=== PATIENT | female | born 1990 | race Caucasian/White ===

== ENCOUNTER 2016-09-17 20:53 | Emergency (ER) | payer SELFPAY ==
[~2016-09-17] VITALS: Ht 152.4 cm; Wt 57.3 kg
[~2016-09-17 20:53] MED LIST: ADVA250A INH; BACL10TA PO; ZOFR4TAB PO
[2016-09-17 21:16] VITALS: BP 104/73; PULSE 108; RESP 20; TEMP 98.8; O2SAT 98
[2016-09-17 22:45] VITALS: BP 103/71; PULSE 90; RESP 16; O2SAT 98
[2016-09-18 00:10] VITALS: BP 92/59; PULSE 99; RESP 16; O2SAT 98
[2016-09-18 00:43] VITALS: BP 92/59; PULSE 99; RESP 16; O2SAT 98
[2016-09-18] MEDS ORDERED: COLY4000S PO (20:27)
[2016-09-18] MEDS ORDERED: ZOFR4TAB PO (20:27)
[2017-01-26] MEDS ORDERED: MOBI7.5T PO (11:07)
== END 2016-09-18 01:00 | disposition left against medical advice (07) ==
LOC: PHED 20:53
DX: Z53.21 Procedure and treatment not carried out due to patient leaving prior to being seen by health care provider (principal)
CPT/HCPCS: 99281

== ENCOUNTER 2016-09-18 17:51 | Emergency (ER) | payer BC ==
[~2016-09-18] VITALS: Ht 152.4 cm; Wt 58.0 kg
[~2016-09-18 17:51] MED LIST changes: -BACL10TA PO; -ZOFR4TAB PO
[2016-09-18 17:53] VITALS: BP 123/70; PULSE 82; RESP 15; TEMP 98.3; O2SAT 96
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
[2016-09-18] MEDS ORDERED: ONDANSETRON HCL 4 MG/2 ML VIAL IV PUSH ONE (18:30)
[2016-09-18 19:25] LABS: AUTOMATED NEUTROPHIL # 6.5 TH/MM3 (1.8-7.7); BASOPHIL # 0.1 TH/MM3 (0-0.2); BASOPHIL % 0.6 % (0.0-2.0); EOSINOPHIL # 0.3 TH/MM3 (0-0.4); EOSINOPHIL % 2.6 % (0.0-4.0); HEMATOCRIT 41.9 % (35.0-46.0); HEMO FLAGS DIFF FINAL; LYMPH % 30.8 % (9.0-44.0); LYMPHOCYTE # 3.3 TH/MM3 (1.0-4.8); MEAN CELL VOLUME 91.9 FL (80.0-100.0); MEAN CORPUSCULAR HEMOGLOBIN 31.3 PG (27.0-34.0); MONO % 5.2 % (0.0-8.0); NEUT % 60.8 % (16.0-70.0); PLATELET COUNT 312 TH/MM3 (150-450); RED BLOOD COUNT 4.56 MIL/MM3 (4.00-5.30); RED CELL DISTRIBUTION WIDTH 12.9 % (11.6-17.2); WHITE BLOOD COUNT 10.6 TH/MM3 (4.0-11.0)
--- NOTE | 2016-09-18 19:33 | PD ---
Data Data Last Documented VS Vital Signs Date Time Temp Pulse Resp B/P Pulse Ox O2 Delivery O2 Flow Rate FiO2 09/18/16 18:08 17 09/18/16 17:53 98.3 82 123/70 96 Orders Complete Blood Count With Diff (09/18/16 18:26) Comprehensive Metabolic Panel (09/18/16 18:26) Lipase (09/18/16 18:26) Urinalysis - C+S If Indicated (09/18/16 18:26) Ct Abd/Pel W Iv Contrast(Rout) (09/18/16 18:26) Ed Urine Pregnancytest Poc (09/18/16 18:26) Ondansetron Inj (Zofran Inj) (09/18/16 18:30) Labs Laboratory Tests Test 09/18/16 19:16 White Blood Count 10.6 TH/MM3 Red Blood Count 4.56 MIL/MM3 Hemoglobin 14.3 GM/DL Hematocrit 41.9 % Mean Corpuscular Volume 91.9 FL Mean Corpuscular Hemoglobin 31.3 PG Mean Corpuscular Hemoglobin 34.0 % Concent Red Cell Distribution Width 12.9 % Platelet Count 312 TH/MM3 Mean Platelet Volume 8.8 FL Neutrophils (%) (Auto) 60.8 % Lymphocytes (%) (Auto) 30.8 % Monocytes (%) (Auto) 5.2 % Eosinophils (%) (Auto) 2.6 % Basophils (%) (Auto) 0.6 % Neutrophils # (Auto) 6.5 TH/MM3 Lymphocytes # (Auto) 3.3 TH/MM3 Monocytes # (Auto) 0.6 TH/MM3 Eosinophils # (Auto) 0.3 TH/MM3 Basophils # (Auto) 0.1 TH/MM3 CBC Comment DIFF FINAL Differential Comment [facility] Supervised Visit with KAMRAN: Yes Narrative Course The history, exam, and medical decision-making in the associated midlevel provider note were completed with my assistance. I reviewed and agree with the findings presented. I attest that I had a [id number] encounter with the patient on the same day, and personally performed and documented my assessment and findings in the medical record. *My assessment and Findings: This is a 26-year-old female who presents to the emergency department with vomiting, constipation and abdominal pain. She has no risk factors for bowel obstruction. She evidently had an x-ray at the urgent care where she was told that she has 2 sites of blockage and she should come to the emergency department for CT scan. Her paperwork notes that she has constipation and she should follow-up with a consultant technology as an outpatient. Given the patient's history it's reasonable to obtain a CT scan to rule out bowel obstruction. Patient will be dispositioned based on the findings. Aracelis Solano MD Sep 18, 2016 19:33
[2016-09-18 19:49] LABS: ANION GAP 7 MEQ/L (5-15); AST (GOT) 13 U/L (15-37); BICARBONATE 27.9 MEQ/L (21.0-32.0); BLOOD UREA NITROGEN 8 MG/DL (7-18); CHLORIDE 103 MEQ/L (98-107); GLOMERULAR FILTRATION RATE 102 ML/MIN (>89); POTASSIUM 4.1 MEQ/L (3.5-5.1); SODIUM (NA) 138 MEQ/L (136-145)
[2016-09-18 19:52] LABS: ALKALINE PHOSPHATASE 69 U/L (45-117); ALT (GPT) 25 U/L (10-53); TOTAL BILIRUBIN ADULT 0.3 MG/DL (0.2-1.0)
[2016-09-18] MEDS ORDERED: COLY4000S PO (20:27)
[2016-09-18] MEDS ORDERED: ZOFR4TAB PO (20:27)
[2016-09-18] MEDS ORDERED: IOHEXOL 350 MG/ML 10 ML VIAL (for RAD DIAG) IV ONE (20:34)
[2016-09-18 20:52] LABS: BACTERIA, URINE RARE /hpf; BLOOD, URINE NEG (NEG); COMMENT (UR) CULT NOT INDICATED; CULTURE IF INDICATED CULT NOT INDICATED; GLUCOSE,URINE NEG (NEG); KETONE, URINE NEG (NEG); NITRITE,URINE NEG (NEG); SQUAMOUS EPITHELIAL CELL URINE 2 /hpf (0-5); URINE COLOR COLORLESS (YELLW/STRAW)
--- NOTE | 2016-09-18 21:29 | RADRPT ---
EXAM DATE/TIME: 09/18/2016 20:29 [facility] COMPARISON: No previous studies available for comparison. INDICATIONS : Lower abdominal pain with constipation and nausea. IV CONTRAST: 95 cc Omnipaque 350 (iohexol) IV ORAL CONTRAST: No oral contrast ingested. RADIATION DOSE: 5.42 CTDIvol (mGy) MEDICAL HISTORY : Asthma. SURGICAL HISTORY : None. ENCOUNTER: Initial ACUITY: 1 day PAIN SCALE: 3/10 LOCATION: Bilateral lower quadrant TECHNIQUE: Volumetric scanning of the abdomen and pelvis was performed. Using automated exposure control and ad justment of the mA and/or kV according to patient size, radiation dose was kept as low as reasonably achievable to obtain optimal diagnostic quality images. FINDINGS: Bases are clear. Mild fatty liver. No significant abnormality in the spleen, adrenals, kidneys or santiago creas. No free fluid. No bowel obstruction. No adenopathy. There is a 2 cm right sided ovarian cyst. CONCLUSION: 1. No acute findings. 2 cm right ovarian cyst. No obstruction, free fluid or free air. Wally Conley MD on September 18, 2016 at 21:24 Board Certified Radiologist. This report was verified electronically.
[2016-09-18 21:53] VITALS: BP 128/77
[2017-01-26] MEDS ORDERED: MOBI7.5T PO (11:07)
== END 2016-09-18 21:53 | disposition home or self-care (01) ==
LOC: NEPE 17:51
DX: K59.00 Constipation, unspecified (principal); R10.30 Lower abdominal pain, unspecified; R11.0 Nausea; N83.201 Unspecified ovarian cyst, right side; J45.909 Unspecified asthma, uncomplicated
CPT/HCPCS: 74177; 80053; 81001; 83690; 84703; 85025; 96374; 99284; J2405; Q9967

== ENCOUNTER 2016-09-21 11:56 | Emergency (ER) | payer BC ==
[~2016-09-21] VITALS: Ht 152.4 cm; Wt 56.4 kg
[~2016-09-21 11:56] MED LIST changes: +COLY4000S PO; +ZOFR4TAB PO
[2016-09-21 12:14] VITALS: BP 123/74; PULSE 84; RESP 16; TEMP 98.2; O2SAT 98
--- NOTE | 2016-09-21 12:27 | PD ---
HPI Chief Complaint: Bite or Sting Time Seen by Provider: 12:25 Travel History International Travel<30 days: No Contact w/Intl Traveler<30days: No Traveled to known affect area: No History of Present Illness HPI Patient is a 26-year-old female presenting to emergency department for evaluation of dog bite to her left hand. Patient states the bite occurred just prior to arrival. Per the owners report the dog's up-to-date with immunizations. Patient's last tetanus vaccination was approximately one year ago. Patient states she is unable to move her thumb and first finger. She states the pain radiates up her forearm. She reports the pain as a 6 out of 10. PFSH Past Medical History ADHD: Yes Asthma: Yes Anxiety: Yes Diminished Hearing: No Headaches: Yes Respiratory: Yes (asthma) Immunizations Current: No Migraines: Yes ?: Not LMP: 09/03/16 Menopausal: No : 0 Para: 0 Miscarriage: 0 Past Surgical History Ear Surgery: Yes (EUSTATIAN TUBES A CHILD) Oral Surgery: Yes (WISDOM TEETH X 4) Tonsillectomy: Yes Tympanostomy Tube: Yes Other Surgery: Yes (ADENOIDECTOMY) Social History Alcohol Use: No Tobacco Use: No Substance Use: No Allergies-Medications (Allergen,Severity, Reaction): Coded Allergies: Cinnamon (Verified Allergy, Severe, HIVES, 09/21/16) Hydrocortisone (Verified Allergy, Severe, HIVES, 09/21/16) Mustard (Verified Allergy, Severe, HIVES, 09/21/16) Neomycin (Verified Allergy, Severe, HIVES, 09/21/16) Penicillin (Verified Allergy, Severe, HIVES, 09/21/16) Polysporin (Verified Allergy, Severe, HIVES, 09/21/16) Sulfa (Verified Allergy, Severe, hives, 09/21/16) Uncoded Allergies: BARBQUE SAUCE (Allergy, Severe, HIVES, 08/16/11) HONEY (Allergy, Severe, HIVES, 08/16/11) Reported Meds & Prescriptions Reported Meds & Active Scripts Active Golytely 236 gm (Polyethylene Glycol/Electrolytes) 4,000 Ml Soln 4,000 Ml PO ONCE Reported Advair Diskus Inh (Fluticasone-Salmeterol Inh) 250-50 Mcg/Blist Aer 1 Puff INH BID Rinse mouth after use. Review of Systems Except as stated in HPI: all other systems reviewed are Neg Musculoskeletal: Positive: Myalgias, Limited ROM, Edema, Pain Skin: Positive Change in Pigmentation, Positive Lesions Physical Exam Narrative GENERAL: Well-nourished, well-developed patient. SKIN: Warm and dry. Puncture wound noted to the interdigital space between the first and second fingers on the left hand as well as the dorsal aspect of the left hand. Ecchymosis noted to the left hand. Positive radial pulse, brisk less than 3 second capillary refill. HEAD: Normocephalic. EYES: No scleral icterus. No injection or drainage. NECK: Supple, trachea midline. No JVD or lymphadenopathy. CARDIOVASCULAR: Regular rate and rhythm without murmurs, gallops, or rubs. RESPIRATORY: Breath sounds equal bilaterally. No accessory muscle use. GASTROINTESTINAL: Abdomen soft, non-tender, nondistended. MUSCULOSKELETAL: No cyanosis, or edema. Decreased range of motion in fingers of left hand. BACK: Nontender without obvious deformity. No CVA tenderness. Data Data Last Documented VS Vital Signs Date Time Temp Pulse Resp B/P Pulse Ox O2 Delivery O2 Flow Rate FiO2 09/21/16 12:14 98.2 84 16 123/74 98 Orders Hand, Complete ([id number]) (09/21/16 ) Ibuprofen (Motrin) (09/21/16 12:30) MDM Medical Decision Making Medical Screen Exam Complete: Yes Emergency Medical Condition: Yes Interpretation(s) Vital Signs Date Time Temp Pulse Resp B/P Pulse Ox O2 Delivery O2 Flow Rate FiO2 09/21/16 12:14 98.2 84 16 123/74 98 Differential Diagnosis Puncture wound versus fracture versus tear versus other Narrative Course Patient is a 26-year-old female who presents emergency evaluation after a dog bite that occurred prior to arrival to her left hand. She states the dog is up- to-date with immunizations. Patient's tetanus vaccine is updated. Imaging of the left hand shows no acute fracture, no radiopaque foreign body noticed. Patient is neurovascularly intact. Patient was seen and evaluated by my attending physician. Patient will be discharged home on doxycycline and metronidazole due to an allergy to penicillin and sulfa drugs. She is encouraged to return to the emergency department for any new or worsening symptoms. She is further encouraged to follow-up with dog's owners to ensure that the animal has been adequately vaccinated. She verbalized understanding of these instructions. Patient stable for discharge. Diagnosis Primary Impression: Dog bite of hand Qualified Code: S61.452A - Dog bite of hand, left, initial encounter Referrals: Primary Care Physician Patient Instructions: Animal Bite (ED), General Instructions Additional Instructions: Return to emergency department immediately for any new or worsening symptoms Complete full course of antibiotics as prescribed Follow-up with dog's owners to ensure adequate vaccination, return to emergency department or [facility] Med/Other Pt SpecificInfo: Prescription(s) given Scripts Ibuprofen 800 Mg [id number] Mg PO Q6HR PRN (PAIN) #40 TAB Ref 0 Prov:Sania Pemberton 09/21/16 Metronidazole 500 Mg [id number] Mg PO TID 10 Days Ref 0 Prov:Sania Pemberton 09/21/16 Doxycycline (Monohydrate) (Doxycycline Monohydrate)100 Mg Tab1 Tab PO BID 10 Days Prov:Sania Pemberton 09/21/16 Disposition: 01 DISCHARGE HOME Condition: Stable Sania Pemberton Sep 21, 2016 12:27
[2016-09-21] MEDS ORDERED: IBUPROFEN 800 MG TAB PO ONE (12:30)
--- NOTE | 2016-09-21 13:25 | PD ---
Data Data Last Documented VS Vital Signs Date Time Temp Pulse Resp B/P Pulse Ox O2 Delivery O2 Flow Rate FiO2 09/21/16 12:14 98.2 84 16 123/74 98 Orders Hand, Complete ([id number]) (09/21/16 ) Ibuprofen (Motrin) (09/21/16 12:30) MDM Supervised Visit with KAMRAN: Yes Narrative Course Patient seen and examined by me in addition to sania QIU. Patient placed on third line doxycycline and flagyl secondary to allergies to penicillin and sulfa. Patient has unimpressive dog bite to thenar eminence. PMS intact, tendon's intact. Low risk for rabies. Prophylaxis not indicated. Stable for discharge. Scripts Ibuprofen 800 Mg Rug116 Mg PO Q6HR PRN (PAIN) #40 TAB Ref 0 Prov:Sania Pemberton 09/21/16 Metronidazole 500 Mg Thu391 Mg PO TID 10 Days Ref 0 Prov:Sania Pemberton 09/21/16 Doxycycline (Monohydrate) (Doxycycline Monohydrate)100 Mg Tab1 Tab PO BID 10 Days Prov:Sania Pemberton 09/21/16 Miguel A Jones MD Sep 21, 2016 13:25
--- NOTE | 2016-09-21 13:33 | RADHPO ---
EXAM DATE/TIME: 09/21/2016 12:54 [facility] COMPARISON: HAND LEFT COMPLETE ([id number]), September 11, 2006, 19:33. INDICATIONS : Left hand pain post dog bite. MEDICAL HISTORY : Asthma. SURGICAL HISTORY : Appendectomy. Tonsillectomy. ENCOUNTER: Initial ACUITY: 1 day PAIN SCORE: 10/10 LOCATION: Left hand FINDINGS: Three view examination of the left hand demonstrates no soft tissue swelling, dislocation, or fractur e. The carpal bones appear intact. The interphalangeal and metacarpophalangeal joints are intact. Bony mineralization is normal. CONCLUSION: Negative exam with no radiopaque foreign body or bony abnormality. Emiliano Pritchard MD on September 21, 2016 at 13:29 Board Certified Radiologist. This report was verified electronically.
[2016-09-21] MEDS ORDERED: IBUP800T23 PO (13:44)
[2016-09-21] MEDS ORDERED: METR500T10 PO (13:44)
[2016-09-21] MEDS ORDERED: DOXY1TAB13 PO (13:44)
[2017-01-26] MEDS ORDERED: MOBI7.5T PO (11:07)
== END 2016-09-21 13:53 | disposition home or self-care (01) ==
LOC: PHEFT 11:56
DX: S61.452A Open bite of left hand, initial encounter (principal); W54.0XXA Bitten by dog, initial encounter
CPT/HCPCS: 73130; 99283

== ENCOUNTER 2016-11-30 16:48 | Emergency (ER) | payer OTHER, BC ==
[~2016-11-30] VITALS: Ht 157.5 cm; Wt 57.2 kg
[~2016-11-30 16:48] MED LIST changes: +DOXY1TAB13 PO; +IBUP800T23 PO; +METR500T10 PO; -ZOFR4TAB PO
[2016-11-30 16:57] VITALS: BP 107/79; PULSE 81; RESP 16; TEMP 98.4; O2SAT 99
[2016-11-30] MEDS ORDERED: IBUP800T23 PO (17:59)
[2016-11-30] MEDS ORDERED: CYCL1TAB29 PO (17:59)
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
[2017-01-26] MEDS ORDERED: MOBI7.5T PO (11:07)
== END 2016-11-30 18:26 | disposition home or self-care (01) ==
LOC: PHED 16:48 → PHEFT 18:26
DX: M25.561 Pain in right knee (principal); J45.909 Unspecified asthma, uncomplicated; V43.52XA Car driver injured in collision with other type car in traffic accident, initial encounter; Y93.9 Activity, unspecified; Y92.410 Unspecified street and highway as the place of occurrence of the external cause; Y99.8 Other external cause status
CPT/HCPCS: 99283

== ENCOUNTER 2017-01-23 03:52 | Emergency (ER) | payer BC, OTHER ==
[~2017-01-23] VITALS: Ht 160 cm; Wt 60.0 kg
[~2017-01-23 03:52] MED LIST changes: +CYCL1TAB29 PO
[2017-01-23 03:58] VITALS: BP 144/78; PULSE 102; RESP 18; TEMP 98.1; O2SAT 99
[2017-01-23] MEDS ORDERED: meloxicam PO (04:20)
--- NOTE | 2017-01-23 04:38 | PD ---
HPI Chief Complaint: Psychiatric Symptoms Time Seen by Provider: 04:32 Travel History International Travel<30 days: No Contact w/Intl Traveler<30days: No Traveled to known affect area: No History of Present Illness HPI 26-year-old white female presents to emergency department under Fuentes act by PD. The patient had gotten into an argument with her significant other earlier this evening. There is allegations that she had made suicidal statements that she was going to shoot herself or shooting other people. This had stemmed after having a breakup with her significant other. The patient denies making the statements. She states that she had made vague suicidal statements but does not recall making suicidal statements involving a firearm. She states that she does have a handgun and should sit on a regular basis and has a concealed weapons permit. She denies any drugs. She does drink alcohol on occasion but denies any alcohol tonight. She is under the care of her physician for lower pelvic discomfort. She also has had problems with hair loss and is scheduled for a ultrasound of her pelvis. There was a question whether she may have had a positive test but reports a period on the of last month. She denies any toxic ingestions. No homicidal ideation. She denies any suicidal ideation. PFSH Past Medical History Narrative Medical Migraines, anxiety, ADHD ADHD: Yes Asthma: Yes Anxiety: Yes Diminished Hearing: No Headaches: Yes Respiratory: Yes (asthma) Immunizations Current: No Migraines: Yes Tetanus Vaccination: < 5 Years ?: Unknown LMP: 01/06/2017 Menopausal: No : 0 Para: 0 Miscarriage: 0 Past Surgical History Narrative Surgical Tonsils and adenoids, eye surgery, myringotomy tubes, right knee arthroscopy Ear Surgery: Yes (EUSTATIAN TUBES A CHILD) Oral Surgery: Yes (WISDOM TEETH X 4) Tonsillectomy: Yes Tympanostomy Tube: Yes Other Surgery: Yes (ADENOIDECTOMY) Social History Alcohol Use: Yes (socially) Tobacco Use: No Substance Use: No Allergies-Medications (Allergen,Severity, Reaction): Coded Allergies: Cinnamon (Verified Allergy, Severe, HIVES, 11/30/16) Hydrocortisone (Verified Allergy, Severe, HIVES, 11/30/16) Mustard (Verified Allergy, Severe, HIVES, 11/30/16) Neomycin (Verified Allergy, Severe, HIVES, 11/30/16) Penicillin (Verified Allergy, Severe, HIVES, 11/30/16) Polysporin (Verified Allergy, Severe, HIVES, 11/30/16) Sulfa (Verified Allergy, Severe, hives, 11/30/16) Uncoded Allergies: BARBQUE SAUCE (Allergy, Severe, HIVES, 08/16/11) HONEY (Allergy, Severe, HIVES, 08/16/11) Reported Meds & Prescriptions Reported Meds & Active Scripts Active Reported [meloxicam] 1 Tab PO DAILY Review of Systems Except as stated in HPI: all other systems reviewed are Neg Physical Exam Narrative GENERAL: Well-nourished, well-developed patient. SKIN: Warm and dry. HEAD: Normocephalic and atraumatic. EYES: No scleral icterus. No injection or drainage. ENT: No nasal drainage noted. Mucous membranes pink. Airway patent. NECK: Supple, trachea midline. Moves head freely without obvious discomfort. CARDIOVASCULAR: Regular rate and rhythm without murmurs, gallops, or rubs. RESPIRATORY: Breath sounds equal bilaterally. No accessory muscle use. GASTROINTESTINAL: Abdomen soft, non-tender, nondistended. EXTREMITIES: No cyanosis or edema. BACK: Nontender without obvious deformity. No CVA tenderness. NEURO: Patient is alert and oriented. no sensorimotor deficits. Nonfocal. Normal speech. PSYCH: No delusions. No auditory or visual hallucinations. Data Data Last Documented VS Vital Signs Date Time Temp Pulse Resp B/P Pulse Ox O2 Delivery O2 Flow Rate FiO2 01/23/17 03:58 98.1 102 18 144/78 99 Orders Complete Blood Count With Diff (01/23/17 04:19) Comprehensive Metabolic Panel (01/23/17 04:19) Ed Urine Pregnancytest Poc (01/23/17 04:19) Psych Screen (01/23/17 04:19) Drug Screen, Random Urine (01/23/17 04:19) Alcohol (Ethanol) (01/23/17 04:19) Labs Laboratory Tests Test 01/23/17 04:40 White Blood Count 9.9 TH/MM3 Red Blood Count 4.42 MIL/MM3 Hemoglobin 13.9 GM/DL Hematocrit 39.9 % Mean Corpuscular Volume 90.2 FL Mean Corpuscular Hemoglobin 31.4 PG Mean Corpuscular Hemoglobin 34.9 % Concent Red Cell Distribution Width 12.8 % Platelet Count 271 TH/MM3 Mean Platelet Volume 9.4 FL Neutrophils (%) (Auto) 81.5 % Lymphocytes (%) (Auto) 14.3 % Monocytes (%) (Auto) 3.7 % Eosinophils (%) (Auto) 0.1 % Basophils (%) (Auto) 0.4 % Neutrophils # (Auto) 8.1 TH/MM3 Lymphocytes # (Auto) 1.4 TH/MM3 Monocytes # (Auto) 0.4 TH/MM3 Eosinophils # (Auto) 0.0 TH/MM3 Basophils # (Auto) 0.0 TH/MM3 CBC Comment DIFF FINAL Differential Comment Sodium Level 139 MEQ/L Potassium Level 3.6 MEQ/L Chloride Level 104 MEQ/L Carbon Dioxide Level 25.9 MEQ/L Anion Gap 9 MEQ/L Blood Urea Nitrogen 11 MG/DL Creatinine 0.73 MG/DL Estimat Glomerular Filtration 97 ML/MIN Rate Random Glucose 100 MG/DL Calcium Level 9.0 MG/DL Total Bilirubin 0.4 MG/DL Aspartate Amino Transf 20 U/L (AST/SGOT) Alanine Aminotransferase 27 U/L (ALT/SGPT) Alkaline Phosphatase 62 U/L Total Protein 8.2 GM/DL Albumin 4.9 GM/DL Urine Opiates Screen NEG Urine Barbiturates Screen NEG Urine Amphetamines Screen NEG Urine Benzodiazepines Screen NEG Urine Cocaine Screen NEG Urine Cannabinoids Screen NEG Ethyl Alcohol Level LESS THAN 3 MG/DL MDM Medical Decision Making Medical Screen Exam Complete: Yes Emergency Medical Condition: Yes Medical Record Reviewed: Yes Interpretation(s) Laboratory Tests Test 01/23/17 04:40 White Blood Count 9.9 TH/MM3 Red Blood Count 4.42 MIL/MM3 Hemoglobin 13.9 GM/DL Hematocrit 39.9 % Mean Corpuscular Volume 90.2 FL Mean Corpuscular Hemoglobin 31.4 PG Mean Corpuscular Hemoglobin 34.9 % Concent Red Cell Distribution Width 12.8 % Platelet Count 271 TH/MM3 Mean Platelet Volume 9.4 FL Neutrophils (%) (Auto) 81.5 % Lymphocytes (%) (Auto) 14.3 % Monocytes (%) (Auto) 3.7 % Eosinophils (%) (Auto) 0.1 % Basophils (%) (Auto) 0.4 % Neutrophils # (Auto) 8.1 TH/MM3 Lymphocytes # (Auto) 1.4 TH/MM3 Monocytes # (Auto) 0.4 TH/MM3 Eosinophils # (Auto) 0.0 TH/MM3 Basophils # (Auto) 0.0 TH/MM3 CBC Comment DIFF FINAL Differential Comment Sodium Level 139 MEQ/L Potassium Level 3.6 MEQ/L Chloride Level 104 MEQ/L Carbon Dioxide Level 25.9 MEQ/L Anion Gap 9 MEQ/L Blood Urea Nitrogen 11 MG/DL Creatinine 0.73 MG/DL Estimat Glomerular Filtration 97 ML/MIN Rate Random Glucose 100 MG/DL Calcium Level 9.0 MG/DL Total Bilirubin 0.4 MG/DL Aspartate Amino Transf 20 U/L (AST/SGOT) Alanine Aminotransferase 27 U/L (ALT/SGPT) Alkaline Phosphatase 62 U/L Total Protein 8.2 GM/DL Albumin 4.9 GM/DL Urine Opiates Screen NEG Urine Barbiturates Screen NEG Urine Amphetamines Screen NEG Urine Benzodiazepines Screen NEG Urine Cocaine Screen NEG Urine Cannabinoids Screen NEG Ethyl Alcohol Level LESS THAN 3 MG/DL Differential Diagnosis MDM: High Differential diagnoses: Schizophrenia, schizoaffective disorder, bipolar, anxiety, depression, adjustment reaction, mood disorder NOS, ODD, depressive disorder NOS, dementia, dementia with agitation, psychosis NOS, substance induced mood disorder, intermittent explosive disorder, Asperger syndrome, infection,electrolyte abnormality, malingering. Narrative Course Mental health screening discussed with the patient. Psychiatric screen ordered. The patient's been medically cleared. This is adjustment reaction, medical clearance psychological admission Diagnosis Primary Impression: Adjustment reaction Qualified Code: F43.25 - Adjustment disorder with mixed disturbance of emotions and conduct Additional Impression: Medical clearance for psychiatric admission Condition: Stable Wally Randle Jan 23, 2017 04:37
[2017-01-23 04:59] LABS: AUTOMATED NEUTROPHIL # 8.1 TH/MM3 (1.8-7.7); BASOPHIL % 0.4 % (0.0-2.0); EOSINOPHIL % 0.1 % (0.0-4.0); HEMATOCRIT 39.9 % (35.0-46.0); HEMO FLAGS DIFF FINAL; LYMPH % 14.3 % (9.0-44.0); LYMPHOCYTE # 1.4 TH/MM3 (1.0-4.8); MEAN CELL VOLUME 90.2 FL (80.0-100.0); MEAN CORPUSCULAR HEMOGLOBIN 31.4 PG (27.0-34.0); MEAN CORPUSCULAR HGB CONC 34.9 % (32.0-36.0); MONO % 3.7 % (0.0-8.0); NEUT % 81.5 % (16.0-70.0); PLATELET COUNT 271 TH/MM3 (150-450); RED BLOOD COUNT 4.42 MIL/MM3 (4.00-5.30); RED CELL DISTRIBUTION WIDTH 12.8 % (11.6-17.2); WHITE BLOOD COUNT 9.9 TH/MM3 (4.0-11.0)
[2017-01-23 05:26] LABS: ALT (GPT) 27 U/L (10-53); ANION GAP 9 MEQ/L (5-15); AST (GOT) 20 U/L (15-37); BICARBONATE 25.9 MEQ/L (21.0-32.0); BLOOD UREA NITROGEN 11 MG/DL (7-18); CHLORIDE 104 MEQ/L (98-107); GLOMERULAR FILTRATION RATE 97 ML/MIN (>89); POTASSIUM 3.6 MEQ/L (3.5-5.1); SODIUM (NA) 139 MEQ/L (136-145)
[2017-01-23 05:28] LABS: ALKALINE PHOSPHATASE 62 U/L (45-117); TOTAL BILIRUBIN ADULT 0.4 MG/DL (0.2-1.0)
[2017-01-23 05:46] LABS: AMPHETAMINE, URINE NEG (NEG); BARBITURATES, URINE NEG (NEG); COCAINE, URINE NEG (NEG)
[2017-01-23 07:03] VITALS: BP 128/75; PULSE 85; RESP 17; O2SAT 99
[2017-01-23 11:15] VITALS: BP 130/72; PULSE 82; RESP 18; O2SAT 98
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
[2017-01-26] MEDS ORDERED: MOBI7.5T PO (11:07)
== END 2017-01-23 12:28 | disposition home or self-care (01) ==
LOC: NEPD 03:52
DX: F43.20 Adjustment disorder, unspecified (principal); F90.9 Attention-deficit hyperactivity disorder, unspecified type; J45.909 Unspecified asthma, uncomplicated; F41.9 Anxiety disorder, unspecified
CPT/HCPCS: 80053; 80307; 84703; 85025; 99284

== ENCOUNTER 2017-01-29 23:26 | Emergency (ER) | payer BC, OTHER ==
[~2017-01-29] VITALS: Ht 160 cm; Wt 55.0 kg
[~2017-01-29 23:26] MED LIST changes: -ADVA250A INH; -COLY4000S PO; -CYCL1TAB29 PO; -DOXY1TAB13 PO; -IBUP800T23 PO; -METR500T10 PO; +MOBI7.5T PO
[2017-01-29 23:30] VITALS: BP 138/81; PULSE 92; RESP 18; TEMP 98.5; O2SAT 99
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
[2017-01-30 02:00] VITALS: BP 122/76; PULSE 87; RESP 16; O2SAT 99
== END 2017-01-30 05:12 | disposition left against medical advice (07) ==
LOC: PHED 23:26
DX: T76.21XA Adult sexual abuse, suspected, initial encounter (principal); Z86.59 Personal history of other mental and behavioral disorders; Z87.09 Personal history of other diseases of the respiratory system; Z86.69 Personal history of other diseases of the nervous system and sense organs
CPT/HCPCS: 99281

== ENCOUNTER 2017-04-28 17:11 | Emergency (ER) | payer BC ==
[2017-04-28 17:21] VITALS: BP 111/60; PULSE 90; RESP 20; TEMP 98.4; O2SAT 97
[2017-04-28 18:51] LABS: BLOOD, URINE NEG (NEG); GLUCOSE,URINE NEG (NEG); KETONE, URINE NEG (NEG); NITRITE,URINE NEG (NEG)
[2017-04-28 19:00] LABS: URINE COLOR YELLOW (YELLW/STRAW)
[2017-04-28 19:01] LABS: COMMENT (UR) CULT NOT INDICATED; CULTURE IF INDICATED CULT NOT INDICATED; RBC, URINE 0-3 /hpf (0-3); WBC, URINE 0-2 /hpf (0-5)
--- NOTE | 2017-04-28 19:49 | PD ---
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 Patient has history of ovarian cyst. Patient is under care of Dr. Figueroa had an ultrasound that showed a 4 mm ovarian cyst on the right within the past 2 months. Patient's last menstrual period was approximate 2 weeks ago. Patient does note that she has painful menses as well as painful midcycle symptoms. Patient does not report any abnormal vaginal discharge or abnormal vaginal bleeding. Patient has had no fever no chills no nausea no vomiting or change in bowel movements. Patient's had no dysuria frequency urgency hematuria or flank pain. Patient rates her pain 8/10 intensity. Symptoms are present for 3 days. Patient is unable to identify exacerbating or alleviating factors. Patient states she came because her boyfriend insisted that she found him to the emergency room. Patient states she's had 2 doses of ibuprofen 800 mg without symptom relief. Patient has had no abdominal or pelvic surgery in the past. Patient has had tonsillectomy adenoidectomy and dental extraction. 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 [facility] Past Medical History Narrative Medical Asthma anxiety tonsillectomy tympanostomy adenoidectomy dental extraction ADHD: Yes Asthma: Yes Anxiety: Yes Diabetes: No (HYPOGLYCEMIA) Diminished Hearing: No Headaches: Yes Respiratory: Yes (asthma) Immunizations Current: No Migraines: Yes Tetanus Vaccination: < 5 Years Influenza Vaccination: No ?: Unknown LMP: 2 WEEKS AGO Menopausal: No : 0 Para: 0 Miscarriage: 0 Past Surgical History Ear Surgery: Yes (EUSTATIAN TUBES A CHILD) Oral Surgery: Yes (WISDOM TEETH X 4) Tonsillectomy: Yes Tympanostomy Tube: Yes Other Surgery: Yes (ADENOIDECTOMY) Social History Alcohol Use: Yes (socially) Tobacco Use: No Substance Use: No Allergies-Medications (Allergen,Severity, Reaction): Coded Allergies: Sulfa (Sulfonamide Antibiotics) (Unverified Allergy, Severe, hives, ) bacitracin (Unverified Allergy, Severe, HIVES, 04/28/17) cinnamon (Unverified Allergy, Severe, HIVES, 04/28/17) hydrocortisone (Unverified Allergy, Severe, HIVES, 04/28/17) mustard (Unverified Allergy, Severe, HIVES, 04/28/17) neomycin (Unverified Allergy, Severe, HIVES, 04/28/17) penicillin G (Unverified Allergy, Severe, HIVES, 04/28/17) polymyxin B (Unverified Allergy, Severe, HIVES, 04/28/17) Uncoded Allergies: BARBQUE SAUCE (Allergy, Severe, HIVES, 08/16/11) HONEY (Allergy, Severe, HIVES, 08/16/11) Reported Meds & Prescriptions Reported Meds & Active Scripts Active Metrogel Vaginal Gel (Metronidazole Vaginal Gel) 0.75 % Gel 1 Appl VAGINAL HS Anaprox DS (Naproxen Sodium) 550 Mg Tab 550 Mg PO Q12HR PRN Review of Systems Except as stated in HPI: all other systems reviewed are Neg General / Constitutional: No: Fever, Chills HENT: No: Congestion Cardiovascular: No: Chest Pain or Discomfort Respiratory: No: Shortness of Breath Gastrointestinal: Positive: Abdominal Pain (suprapubic mild right lower quadrant/pelvic pain), No: Nausea, Vomiting, Diarrhea, Hematemesis, Hematochezia , Constipation, Loss of Appetite Genitourinary: No: Urgency, Frequency, Dysuria, Hematuria, Flank Pain, Discharge, Vaginal Bleeding Musculoskeletal: No: Myalgias, Arthralgias Skin: No Rash Neurologic: No: Weakness Psychiatric: No: Anxiety Endocrine: No: Heat Intolerance Hematologic/Lymphatic: No: Easy Bruising Physical Exam Narrative GENERAL: Well-developed well-nourished female in no acute distress no respiratory distress; SKIN: Warm and dry. HEAD: Normocephalic. EYES: No scleral icterus. No injection or drainage. NECK: Supple, trachea midline. No JVD or lymphadenopathy. CARDIOVASCULAR: Regular rate and rhythm without murmurs, gallops, or rubs. RESPIRATORY: Breath sounds equal bilaterally. No accessory muscle use. GASTROINTESTINAL: Abdomen soft, mild suprapubic and right-sided lower right lower quadrant pain with deep palpation no guarding or rebound, nondistended. Pelvic exam: Normal external exam no redness induration or ulcerations; speculum exam white mucus no blood no clots no tissue cervical os is closed; bimanual exam no cervical motion tenderness mild right-sided adnexal tenderness without palpable mass left adnexa nontender no palpable mass. Rectal exam: Deferred MUSCULOSKELETAL: No cyanosis, or edema. BACK: Nontender without obvious deformity. No CVA tenderness. Data Data Last Documented VS Vital Signs Date Time Temp Pulse Resp B/P (MAP) Pulse Ox O2 Delivery O2 Flow Rate FiO2 04/28/17 21:11 70 15 110/65 (80) 98 Room Air 04/28/17 17:21 98.4 Orders Orders Urinalysis - C+S If Indicated (04/28/17 18:36) Ed Urine Pregnancytest Poc (04/28/17 18:36) Complete Blood Count With Diff (04/28/17 20:02) Basic Metabolic Panel (Bmp) (04/28/17 20:02) Gc And Chlamydia Pcr (04/28/17 20:02) Wet Prep Profile (04/28/17 20:02) Iv Access Insert/Monitor (04/28/17 20:02) Sodium Chlorid 0.9% 500 Ml Inj (Ns 500 M (04/28/17 20:15) Ketorolac Inj (Toradol Inj) (04/28/17 20:15) Ct Abd/Pel W/O Iv Contrast (04/28/17 ) Labs Laboratory Tests Test 04/28/17 18:40 04/28/17 20:39 Urine Color YELLOW Urine Turbidity CLEAR Urine pH 6.0 Urine Specific [place] 1.015 Urine Protein NEG mg/dL Urine Glucose (UA) NEG mg/dL Urine Ketones NEG mg/dL Urine Occult Blood NEG Urine Nitrite NEG Urine Bilirubin NEG Urine Leukocyte Esterase NEG Urine RBC 0-3 /hpf Urine WBC 0-2 /hpf Urine Squamous Epithelial Cells 6-8 /hpf Microscopic Urinalysis Comment CULT NOT INDICATED White Blood Count 9.4 TH/MM3 Red Blood Count 4.18 MIL/MM3 Hemoglobin 13.1 GM/DL Hematocrit 38.1 % Mean Corpuscular Volume 91.1 FL Mean Corpuscular Hemoglobin 31.4 PG Mean Corpuscular Hemoglobin Concent 34.4 % Red Cell Distribution Width 13.0 % Platelet Count 278 TH/MM3 Mean Platelet Volume 8.8 FL Neutrophils (%) (Auto) 59.7 % Lymphocytes (%) (Auto) 30.2 % Monocytes (%) (Auto) 5.1 % Eosinophils (%) (Auto) 4.3 % Basophils (%) (Auto) 0.7 % Neutrophils # (Auto) 5.5 TH/MM3 Lymphocytes # (Auto) 2.9 TH/MM3 Monocytes # (Auto) 0.5 TH/MM3 Eosinophils # (Auto) 0.4 TH/MM3 Basophils # (Auto) 0.1 TH/MM3 CBC Comment DIFF FINAL Differential Comment Clue Cells (Wet Prep) PRESENT Vaginal Trichomonas (Wet Prep) NONE SEEN Vaginal Yeast (Wet Prep) NONE SEEN Blood Urea Nitrogen 14 MG/DL Creatinine 0.60 MG/DL Random Glucose 94 MG/DL Calcium Level 8.1 MG/DL Sodium Level 140 MEQ/L Potassium Level 3.9 MEQ/L Chloride Level 108 MEQ/L Carbon Dioxide Level 25.8 MEQ/L Anion Gap 6 MEQ/L Estimat Glomerular Filtration Rate 121 ML/MIN MDM Medical Decision Making Medical Screen Exam Complete: Yes Emergency Medical Condition: Yes Medical Record Reviewed: Yes Interpretation(s) POC hcg: negativwe UA: grossly wnl Last Impressions Abdomen/Pelvis CT 04/28/17 0000 Signed Impressions: Service Date/Time: April 20:54 - CONCLUSION: Small free fluid in the pelvic cul-de-sac, nonspecific but essentially a physiologic amount for a patient this age. No acute abnormality demonstrated. No inflammatory changes are demonstrated. No stones or obstructive uropathy. Husam Hawkins MD CBC & BMP Diagram 04/28/17 20:39 Calcium Level 8.1 L Vital Signs Date Time Temp Pulse Resp B/P (MAP) Pulse Ox O2 Delivery O2 Flow Rate FiO2 04/28/17 21:11 70 15 110/65 (80) 98 Room Air 04/28/17 17:21 98.4 90 20 111/60 (77) 97 Differential Diagnosis UTI ectopic mittelschmerz ruptured ovarian cyst also consider ovarian torsion Narrative Course Patient with history of ovarian cyst reportedly 2 months ago with 4 cm right ovarian cyst with history of painful menses and midcycle pain. No fever no chills no nausea no vomiting no dysuria or flank pain no abnormal vaginal discharge or vaginal bleeding and denies last period was 2 weeks ago and reportedly normal for her although she has reportedly abnormal cervical. Urinalysis found to be in normal range; [id number] urine test is negative Saline lock CBC basic metabolic specimens collected along with wet prep and GC chlamydia PCR; patient administered bolus of normal saline 500 cc administered Toradol 30 mg IV and kidney stone protocol CT noncontrast ordered. At 9:40 PM patient informed that CAT scan is consistent with most likely small ruptured physiologic cyst is a small amount of physiologic free fluid in the pelvis. Patient is otherwise stable for outpatient management and follow-up with her nut grinder. Patient also noted to have some clue cells given MetroGel-Vaginal and will be followed up again with her nut grinder return to the emergency department as needed. 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: Front Office Manager call for appointment Patient Instructions: General Instructions Additional Instructions: Increase fluid hydration Follow-up with your nut grinder Return to the emergency department for any concerns or change in condition Take medications as prescribed May take acetaminophen/pel as needed for fever 100.4F or greater Med/Other Pt SpecificInfo: Prescription(s) given Scripts Metronidazole Vaginal Gel (Metrogel Vaginal Gel) 0.75 % Gel 1 APPL VAGINAL HS for Infection, #1 TUBE 0 Refills Prov: Marybeth Gunderson MD 04/28/17 Naproxen Sodium DS (Anaprox DS) 550 Mg Tab 550 MG PO Q12HR Y for PAIN GREATER THAN 5, #12 TAB 0 Refills Prov: Marybeth Gunderson MD 04/28/17 Disposition: 01 DISCHARGE HOME Condition: Stable Marybeth Gunderson MD Apr 28, 2017 19:48
[2017-04-28] MEDS ORDERED: KETOROLAC TROMETHAMINE 30 MG/ML (IVP) VIAL IV PUSH ONE (20:15)
[2017-04-28] MEDS ORDERED: SODIUM CHLORID 0.9% 500 ML INJ 500 ML IV ONE (20:15)
[2017-04-28 20:45] LABS: AUTOMATED NEUTROPHIL # 5.5 TH/MM3 (1.8-7.7); BASOPHIL # 0.1 TH/MM3 (0-0.2); BASOPHIL % 0.7 % (0.0-2.0); EOSINOPHIL # 0.4 TH/MM3 (0-0.4); EOSINOPHIL % 4.3 % (0.0-4.0); HEMATOCRIT 38.1 % (35.0-46.0); HEMO FLAGS DIFF FINAL; LYMPH % 30.2 % (9.0-44.0); LYMPHOCYTE # 2.9 TH/MM3 (1.0-4.8); MEAN CELL VOLUME 91.1 FL (80.0-100.0); MEAN CORPUSCULAR HEMOGLOBIN 31.4 PG (27.0-34.0); MEAN CORPUSCULAR HGB CONC 34.4 % (32.0-36.0); MONO % 5.1 % (0.0-8.0); NEUT % 59.7 % (16.0-70.0); PLATELET COUNT 278 TH/MM3 (150-450); RED BLOOD COUNT 4.18 MIL/MM3 (4.00-5.30); WHITE BLOOD COUNT 9.4 TH/MM3 (4.0-11.0)
[2017-04-28 20:53] LABS: POTASSIUM 3.9 MEQ/L (3.5-5.1)
[2017-04-28 20:56] LABS: BICARBONATE 25.8 MEQ/L (21.0-32.0)
[2017-04-28 21:11] VITALS: BP 110/65; PULSE 70; RESP 15; O2SAT 98
--- NOTE | 2017-04-28 21:29 | RADRPT ---
EXAM DATE/TIME: 04/28/2017 20:54 [facility] COMPARISON: No previous studies available for comparison. INDICATIONS : Pain middle abdomen, below umbillicus per patient. ORAL CONTRAST: No oral contrast ingested. RADIATION DOSE: 7.91 CTDIvol (mGy) MEDICAL HISTORY : None SURGICAL HISTORY : Tonsillectomy. ENCOUNTER: Initial ACUITY: 1 day PAIN SCALE: 0/10 LOCATION: Bilateral medial TECHNIQUE: Volumetric scanning of the abdomen and pelvis was performed. Using automated exposure control and ad justment of the mA and/or kV according to patient size, radiation dose was kept as low as reasonably achievable to obtain optimal diagnostic quality images. DICOM format image data is available electro nically for review and comparison. FINDINGS: LOWER LUNGS: The visualized lower lungs are clear. LIVER: Homogeneous density without lesion. There is no dilation of the biliary tree. No calcified gallston es. SPLEEN: Normal size without lesion. PANCREAS: Within normal limits. KIDNEYS: Normal in size and shape. There is no mass, stone, or hydronephrosis. ADRENAL GLANDS: Within normal limits. VASCULAR: There is no aortic aneurysm. BOWEL/MESENTERY: The stomach, small bowel, and colon demonstrate no acute abnormality. No free air. Appendix within no rmal limits. ABDOMINAL WALL: Within normal limits. RETROPERITONEUM: There is no lymphadenopathy. BLADDER: No wall thickening or mass. REPRODUCTIVE: Uterus and ovaries appear normal. Small free fluid in the pelvic cul-de-sac. INGUINAL: There is no lymphadenopathy or hernia. MUSCULOSKELETAL: No acute bony abnormality demonstrated. CONCLUSION: Small free fluid in the pelvic cul-de-sac, nonspecific but essentially a physiologic amount for a pat ient this age. No acute abnormality demonstrated. No inflammatory changes are demonstrated. No stones or obstructive uropathy. Husam Hawkins MD on April 28, 2017 at 21:24 Board Certified Radiologist. This report was verified electronically.
[2017-04-28] MEDS ORDERED: NAPR550 PO (21:39)
[2017-04-28] MEDS ORDERED: METR0.7528 VAGINAL (21:39)
[2017-04-29 05:35] LABS: CHLAMYDIA PCR NOT DETECTED (NOT DETECT); NEISSERIA PCR NOT DETECTED (NOT DETECT)
== END 2017-04-28 22:29 | disposition home or self-care (01) ==
LOC: PHED 17:11
DX: N94.0 Mittelschmerz (principal); N76.0 Acute vaginitis; N83.201 Unspecified ovarian cyst, right side
CPT/HCPCS: 74176; 80048; 81001; 84703; 85025; 87210; 87491; 87591; 96361; 96374; 99285; J1885; J7040

== ENCOUNTER 2017-05-20 22:36 | Emergency (ER) | payer BC ==
[~2017-05-20] VITALS: Ht 160 cm; Wt 57.9 kg
[~2017-05-20 22:36] MED LIST changes: +METR0.7528 VAGINAL; -MOBI7.5T PO; +NAPR550 PO
[2017-05-20 22:39] VITALS: BP 124/76; PULSE 77; RESP 18; TEMP 98.2; O2SAT 97
[2017-05-20] MEDS ORDERED: METR500T10 PO (23:08)
[2017-05-20 23:10] VITALS: BP 104/68; PULSE 90; RESP 16; O2SAT 99
[2017-05-20] MEDS ORDERED: JUNE1.5T PO (23:13)
--- NOTE | 2017-05-20 23:20 | PD ---
HPI Chief Complaint: Abdominal Pain Time Seen by Provider: 23:04 Travel History International Travel<30 days: No Contact w/Intl Traveler<30days: No Traveled to known affect area: No History of Present Illness HPI The patient is a 27-year-old female that came in tonight mainly because of her sharp, positional, pleuritic chest pains for 4 days. She also has lower abdominal pain but this is being worked up by health and wellness sales consultant and this is been intermittent for 3 months. She does have a primary care physician who has been following this as well. The patient denies any fever, cough, hemoptysis, syncopal or near syncopal spells, tachycardia and has never had a history of pulmonary embolus. She states there is no possibility of , she takes control pills correctly. PFSH Past Medical History ADHD: Yes Asthma: Yes Anxiety: Yes Diabetes: No (HYPOGLYCEMIA) Diminished Hearing: No Headaches: Yes Respiratory: Yes Immunizations Current: No Migraines: Yes ?: Not LMP: 10 DAYS AGO Menopausal: No : 0 Para: 0 Miscarriage: 0 Past Surgical History Ear Surgery: Yes (EUSTATIAN TUBES A CHILD) Oral Surgery: Yes (WISDOM TEETH X 4) Tonsillectomy: Yes Tympanostomy Tube: Yes Other Surgery: Yes (ADENOIDECTOMY) Social History Alcohol Use: Yes (socially) Tobacco Use: No Substance Use: No Allergies-Medications (Allergen,Severity, Reaction): Coded Allergies: Sulfa (Sulfonamide Antibiotics) (Unverified Allergy, Severe, hives, ) bacitracin (Unverified Allergy, Severe, HIVES, 05/20/17) cinnamon (Unverified Allergy, Severe, HIVES, 05/20/17) hydrocortisone (Unverified Allergy, Severe, HIVES, 05/20/17) mustard (Unverified Allergy, Severe, HIVES, 05/20/17) neomycin (Unverified Allergy, Severe, HIVES, 05/20/17) penicillin G (Unverified Allergy, Severe, HIVES, 05/20/17) polymyxin B (Unverified Allergy, Severe, HIVES, 05/20/17) Uncoded Allergies: BARBQUE SAUCE (Allergy, Severe, HIVES, 08/16/11) HONEY (Allergy, Severe, HIVES, 08/16/11) Reported Meds & Prescriptions Reported Meds & Active Scripts Active Reported .01/11 (Norethindrone-Ethinyl Estradiol-Fe) 1.5-30 Mg-Mcg Tab 1 Tab PO DAILY Metronidazole 500 Mg Tab 500 Mg PO BID Review of Systems Except as stated in HPI: all other systems reviewed are Neg Physical Exam Narrative GENERAL: The patient is alert, oriented 3 in slight apparent distress with her left chest pain. Her vital signs are normal. She is in no respiratory distress. SKIN: Focused skin assessment warm/dry. HEAD: Atraumatic. Normocephalic. EYES: Pupils equal and round. No scleral icterus. No injection or drainage. ENT: No nasal bleeding or discharge. Mucous membranes pink and moist. NECK: Trachea midline. No JVD. CARDIOVASCULAR: Regular rate and rhythm. No murmur appreciated. RESPIRATORY: No accessory muscle use. Clear to auscultation. Breath sounds equal bilaterally. I can completely reproduce the patient's chest pain by pressing on the left anterior chest wall underneath the left breast. GASTROINTESTINAL: Abdomen soft, non-tender, nondistended. Hepatic and splenic margins not palpable. MUSCULOSKELETAL: No obvious deformities. No clubbing. No cyanosis. No edema. NEUROLOGICAL: Awake and alert. No obvious cranial nerve deficits. Motor grossly within normal limits. Normal speech. PSYCHIATRIC: Appropriate mood and affect; insight and judgment normal. Data Data Last Documented VS Vital Signs Date Time Temp Pulse Resp B/P (MAP) Pulse Ox O2 Delivery O2 Flow Rate FiO2 05/21/17 00:10 72 16 101/58 (72) 98 Room Air 05/20/17 22:39 98.2 Orders Orders Complete Blood Count With Diff (05/20/17 23:20) Basic Metabolic Panel (Bmp) (05/20/17 23:20) Troponin I (05/20/17 23:20) D-Dimer (05/20/17 23:20) Chest, Pa & Lat (05/20/17 23:20) Urinalysis - C+S If Indicated (05/20/17 23:20) Ed Urine Pregnancytest Poc (05/20/17 23:20) Ketorolac Inj (Toradol Inj) (05/20/17 23:30) Urine Culture (05/20/17 23:50) Ct Pulmonary Angiogram (05/21/17 00:48) Iohexol 350 Inj (Omnipaque 350 Inj) (05/21/17 01:15) Labs Laboratory Tests Test 05/20/17 23:50 White Blood Count 11.4 TH/MM3 Red Blood Count 4.60 MIL/MM3 Hemoglobin 13.7 GM/DL Hematocrit 42.1 % Mean Corpuscular Volume 91.6 FL Mean Corpuscular Hemoglobin 29.9 PG Mean Corpuscular Hemoglobin Concent 32.6 % Red Cell Distribution Width 13.3 % Platelet Count 338 TH/MM3 Mean Platelet Volume 9.2 FL Neutrophils (%) (Auto) 73.5 % Lymphocytes (%) (Auto) 19.9 % Monocytes (%) (Auto) 4.5 % Eosinophils (%) (Auto) 1.5 % Basophils (%) (Auto) 0.6 % Neutrophils # (Auto) 8.3 TH/MM3 Lymphocytes # (Auto) 2.3 TH/MM3 Monocytes # (Auto) 0.5 TH/MM3 Eosinophils # (Auto) 0.2 TH/MM3 Basophils # (Auto) 0.1 TH/MM3 CBC Comment DIFF FINAL Differential Comment D-Dimer Quantitative (PE/DVT) 1.06 MG/L FEU Urine Color YELLOW Urine Turbidity SLIGHT Urine pH 5.5 Urine Specific [place] 1.025 Urine Protein NEG mg/dL Urine Glucose (UA) NEG mg/dL Urine Ketones TRACE mg/dL Urine Occult Blood NEG Urine Nitrite NEG Urine Bilirubin NEG Urine Leukocyte Esterase NEG Urine RBC 0-2 /hpf Urine WBC 0-2 /hpf Urine Squamous Epithelial Cells > 8 /hpf Urine Bacteria MANY /hpf Microscopic Urinalysis Comment CULTURE INDICATED Blood Urea Nitrogen 15 MG/DL Creatinine 0.69 MG/DL Random Glucose 74 MG/DL Calcium Level 8.8 MG/DL Sodium Level 136 MEQ/L Potassium Level 3.6 MEQ/L Chloride Level 102 MEQ/L Carbon Dioxide Level 27.8 MEQ/L Anion Gap 6 MEQ/L Estimat Glomerular Filtration Rate 103 ML/MIN Troponin I LESS THAN 0.02 NG/ML MDM Medical Decision Making Medical Screen Exam Complete: Yes Emergency Medical Condition: Yes Medical Record Reviewed: Yes Interpretation(s) The rrniu-aw-ypen urine test was negative. The CBC is normal except for white count of 11,400. The basic metabolic profile is normal. The troponin I is normal. The d-dimer is 1.06. The urine shows trace ketones, many bacteria and culture is indicated. The CT angiogram is negative, the patient does not have any pulmonary embolus. Differential Diagnosis Chest wall pain, pleuritic pain, pneumonia, pulmonary embolus, pneumothorax Narrative Course The patient does have urinary symptoms of urgency and some leakage of her urine which she never had before. She will be treated as a urinary tract infection. Because the d-dimer was elevated, we will do a CTA. Diagnosis Primary Impression: Cystitis Ruled Out: Pulmonary embolus Additional Instructions: The urinary antibiotic is taken one twice daily for 10 days. Also, drink increased amounts of liquids. It is important to establish a good urinary flow across your kidneys with a urine infection. Med/Other Pt SpecificInfo: Prescription(s) given Scripts Nitrofurantoin Monohydrate Macrocrystals (Macrobid) 100 Mg Cap 100 MG PO BID for Infection for 10 Days, #20 CAP 0 Refills Prov: Trey Gill MD 05/21/17 Disposition: 01 DISCHARGE HOME Condition: Stable Trey Gill MD May 20, 2017 23:20
[2017-05-20] MEDS ORDERED: KETOROLAC TROMETHAMINE 60 MG/2 ML (IM) VIAL IVP ONE (23:30)
--- NOTE | 2017-05-20 23:51 | RADRPT ---
EXAM DATE/TIME: 05/20/2017 23:38 [facility] COMPARISON: No previous studies available for comparison. INDICATIONS : Chest pain. MEDICAL HISTORY : Asthma SURGICAL HISTORY : None. ENCOUNTER: Initial ACUITY: 3 months PAIN SCORE: 6/10 LOCATION: Bilateral chest FINDINGS: PA and lateral views of the chest demonstrate the lungs to be symmetrically aerated without evidence of mass, infiltrate or effusion. The cardiomediastinal contours are unremarkable. Osseous structure s are intact. CONCLUSION: Normal examination. Silver Bhatti Jr., MD on May 20, 2017 at 23:49 Board Certified Radiologist. This report was verified electronically.
[2017-05-21] LABS: AUTOMATED NEUTROPHIL # 8.3 TH/MM3 (1.8-7.7); BASOPHIL # 0.1 TH/MM3 (0-0.2); BASOPHIL % 0.6 % (0.0-2.0); EOSINOPHIL # 0.2 TH/MM3 (0-0.4); EOSINOPHIL % 1.5 % (0.0-4.0); HEMATOCRIT 42.1 % (35.0-46.0); HEMO FLAGS DIFF FINAL; LYMPH % 19.9 % (9.0-44.0); LYMPHOCYTE # 2.3 TH/MM3 (1.0-4.8); MEAN CELL VOLUME 91.6 FL (80.0-100.0); MEAN CORPUSCULAR HEMOGLOBIN 29.9 PG (27.0-34.0); MEAN CORPUSCULAR HGB CONC 32.6 % (32.0-36.0); MONO % 4.5 % (0.0-8.0); NEUT % 73.5 % (16.0-70.0); PLATELET COUNT 338 TH/MM3 (150-450); RED CELL DISTRIBUTION WIDTH 13.3 % (11.6-17.2); WHITE BLOOD COUNT 11.4 TH/MM3 (4.0-11.0)
[2017-05-21 00:05] LABS: BLOOD, URINE NEG (NEG); GLUCOSE,URINE NEG (NEG); KETONE, URINE TRACE mg/dL (NEG); NITRITE,URINE NEG (NEG); PH, URINE 5.5 (5.0-8.5)
[2017-05-21 00:09] LABS: URINE COLOR YELLOW (YELLW/STRAW)
[2017-05-21 00:10] VITALS: BP 101/58; PULSE 72; RESP 16; O2SAT 98
[2017-05-21 00:10] LABS: BACTERIA, URINE MANY /hpf; COMMENT (UR) CULTURE INDICATED; CULTURE IF INDICATED CULTURE INDICATED; RBC, URINE 0-2 /hpf (0-3); SQUAMOUS EPITHELIAL CELL URINE > 8 /hpf (0-5); WBC, URINE 0-2 /hpf (0-5)
[2017-05-21 00:11] LABS: CHLORIDE 102 MEQ/L (98-107); POTASSIUM 3.6 MEQ/L (3.5-5.1); SODIUM (NA) 136 MEQ/L (136-145)
[2017-05-21 00:14] LABS: ANION GAP 6 MEQ/L (5-15); BICARBONATE 27.8 MEQ/L (21.0-32.0); BLOOD UREA NITROGEN 15 MG/DL (7-18)
[2017-05-21 00:17] LABS: GLOMERULAR FILTRATION RATE 103 ML/MIN (>89)
[2017-05-21] MEDS ORDERED: IOHEXOL 350 MG/ML 10 ML VIAL (for RAD DIAG) IVCONTRAST ONE (01:15)
--- NOTE | 2017-05-21 01:31 | RADRPT ---
EXAM DATE/TIME: 05/21/2017 01:03 [facility] COMPARISON: No previous studies available for comparison. INDICATIONS : nausea and vomiting with severe lower chest pain. Elevated D-Dimer IV CONTRAST: 75 cc Omnipaque 350 (iohexol) IV RADIATION DOSE: 5.67 CTDIvol (mGy) MEDICAL HISTORY : Asthma SURGICAL HISTORY : None. ENCOUNTER: Initial ACUITY: 1 day PAIN SCALE: 6/10 LOCATION: lower chest TECHNIQUE: Volumetric scanning of the chest was performed using a pulmonary embolism protocol MIP images were re constructed. Using automated exposure control and adjustment of the mA and/or kV according to patien t size, radiation dose was kept as low as reasonably achievable to obtain optimal diagnostic quality images. DICOM format image data is available electronically for review and comparison. Follow-up recommendations for detected pulmonary nodules are based at a minimum on nodule size and pa tient risk factors according to Fleischner Society Guidelines. FINDINGS: PULMONARY ARTERIES: No filling defects are seen in the pulmonary arteries through the segmental level. LUNGS: There is no consolidation or pneumothorax . No concerning pulmonary nodule is visualized. PLEURAE: There is no pleural thickening or pleural effusion. MEDIASTINUM: There is good visualization of the great vessels of the middle mediastinum. No evidence of mediastin al or hilar adenopathy/mass. MUSCULOSKELETAL: Within normal limits for patient age. MISCELLANEOUS: The visualized upper abdominal organs demonstrate no acute abnormality. CONCLUSION: Normal examination. Silver Bhatti Jr., MD on May 21, 2017 at 1:27 Board Certified Radiologist. This report was verified electronically.
[2017-05-21 01:40] VITALS: BP 102/60; PULSE 70; RESP 16; O2SAT 98
[2017-05-21] MEDS ORDERED: MACR100C2 PO (01:49)
[2017-05-21] MEDS ORDERED: IBUP-232 PO (01:54)
[2017-05-21] MEDS ORDERED: NITROFURANTOIN MONOHYD MACROCR 100 MG CAP PO ONE (02:00)
--- NOTE | 2017-05-21 14:25 | EKG ---
Date Performed: 05/20/2017 Time Performed: 22:58:29 PTAGE: 27 years EKG: Sinus rhythm NORMAL ECG NO PREVIOUS TRACING DOCTOR: Adelso Dong Interpretating Date/Time 05/21/2017 14:17:38
== END 2017-05-21 02:02 | disposition home or self-care (01) ==
LOC: PHED 22:36
DX: N30.90 Cystitis, unspecified without hematuria (principal); R07.89 Other chest pain; F90.9 Attention-deficit hyperactivity disorder, unspecified type; J45.909 Unspecified asthma, uncomplicated; F41.9 Anxiety disorder, unspecified; Z79.899 Other long term (current) drug therapy; Z88.0 Allergy status to penicillin; Z88.2 Allergy status to sulfonamides; Z88.8 Allergy status to other drugs, medicaments and biological substances
CPT/HCPCS: 71020; 71275; 80048; 81001; 84484; 84703; 85025; 85379; 87086; 93005; 96374; 99285; J1885; Q9967

== ENCOUNTER 2017-05-28 12:26 | Emergency (ER) | payer BC ==
[~2017-05-28] VITALS: Ht 160 cm; Wt 60.0 kg
[~2017-05-28 12:26] MED LIST changes: +IBUP-232 PO; +JUNE1.5T PO; +MACR100C2 PO; -METR0.7528 VAGINAL; +METR500T10 PO; -NAPR550 PO
[2017-05-28 12:29] VITALS: BP 131/77; PULSE 70; RESP 15; TEMP 98.3; O2SAT 97
[2017-05-28] MEDS ORDERED: SODIUM CHLORIDE 0.9% FLUSH 10 ML FLUSH IV FLUSH PRN (13:00)
[2017-05-28] MEDS ORDERED: FAMOTIDINE 20 MG/2 ML VIAL IV PUSH ONE (13:00)
[2017-05-28] MEDS ORDERED: ONDANSETRON HCL 4 MG/2 ML VIAL IVP ONE (13:00)
[2017-05-28] MEDS ORDERED: KETOROLAC TROMETHAMINE 30 MG/ML (IVP) VIAL IVP ONE (13:00)
[2017-05-28 13:19] LABS: AUTOMATED NEUTROPHIL # 5.5 TH/MM3 (1.8-7.7); BASOPHIL % 0.3 % (0.0-2.0); EOSINOPHIL # 0.3 TH/MM3 (0-0.4); EOSINOPHIL % 3.3 % (0.0-4.0); HEMATOCRIT 37.2 % (35.0-46.0); HEMO FLAGS DIFF FINAL; LYMPH % 27.1 % (9.0-44.0); LYMPHOCYTE # 2.3 TH/MM3 (1.0-4.8); MEAN CELL VOLUME 92.5 FL (80.0-100.0); MEAN CORPUSCULAR HEMOGLOBIN 32.2 PG (27.0-34.0); MEAN CORPUSCULAR HGB CONC 34.9 % (32.0-36.0); MONO % 5.2 % (0.0-8.0); NEUT % 64.1 % (16.0-70.0); PLATELET COUNT 251 TH/MM3 (150-450); RED BLOOD COUNT 4.02 MIL/MM3 (4.00-5.30); RED CELL DISTRIBUTION WIDTH 13.5 % (11.6-17.2); WHITE BLOOD COUNT 8.6 TH/MM3 (4.0-11.0)
[2017-05-28 13:43] LABS: ALT (GPT) 22 U/L (10-53); ANION GAP 7 MEQ/L (5-15); AST (GOT) 12 U/L (15-37); BICARBONATE 24.1 MEQ/L (21.0-32.0); BLOOD UREA NITROGEN 12 MG/DL (7-18); CHLORIDE 107 MEQ/L (98-107); GLOMERULAR FILTRATION RATE 116 ML/MIN (>89); POTASSIUM 4.1 MEQ/L (3.5-5.1); SODIUM (NA) 138 MEQ/L (136-145)
[2017-05-28 13:46] LABS: ALKALINE PHOSPHATASE 43 U/L (45-117); TOTAL BILIRUBIN ADULT 0.3 MG/DL (0.2-1.0)
--- NOTE | 2017-05-28 14:02 | PD ---
HPI Chief Complaint: GI Complaint Time Seen by Provider: 12:46 Travel History International Travel<30 days: No Contact w/Intl Traveler<30days: No Traveled to known affect area: No History of Present Illness HPI 27 year old female here with intermittent upper ABD pain x 2 weeks. She endorses nausea without vomiting. Patient reports she has been seen multiple times for this with extensive workups which have not found a cause. She reports she was treated for UTI, BV, vaginal yeast, and PE/CP RO. The symptoms have persisted. She reports mild improvement with OTC Zantac. She reports she has follow-up with GI this week. She denies fever, chills, chest pain, shortness of breath, dysuria, vaginal discharge. PFSH Past Medical History ADHD: Yes Asthma: Yes Anxiety: Yes Diabetes: No (HYPOGLYCEMIA) Diminished Hearing: No Headaches: Yes Respiratory: Yes (ASTHMA) Immunizations Current: Yes Migraines: Yes ?: Not Menopausal: No : 0 Para: 0 Miscarriage: 0 Ovarian Cysts: Yes Past Surgical History Ear Surgery: Yes (EUSTATIAN TUBES A CHILD) Oral Surgery: Yes (WISDOM TEETH X 4) Tonsillectomy: Yes Tympanostomy Tube: Yes Other Surgery: Yes (ADENOIDECTOMY) Social History Alcohol Use: Yes (very rare) Tobacco Use: No Substance Use: No Allergies-Medications (Allergen,Severity, Reaction): Coded Allergies: Sulfa (Sulfonamide Antibiotics) (Unverified Allergy, Severe, hives, ) bacitracin (Unverified Allergy, Severe, HIVES, 05/20/17) cinnamon (Unverified Allergy, Severe, HIVES, 05/20/17) hydrocortisone (Unverified Allergy, Severe, HIVES, 05/20/17) mustard (Unverified Allergy, Severe, HIVES, 05/20/17) neomycin (Unverified Allergy, Severe, HIVES, 05/20/17) penicillin G (Unverified Allergy, Severe, HIVES, 05/20/17) polymyxin B (Unverified Allergy, Severe, HIVES, 05/20/17) Uncoded Allergies: BARBQUE SAUCE (Allergy, Severe, HIVES, 08/16/11) HONEY (Allergy, Severe, HIVES, 08/16/11) Reported Meds & Prescriptions Reported Meds & Active Scripts Active Pepcid (Famotidine) 40 Mg Tab 40 Mg PO HS Ibuprofen 600 Mg Tab 600 Mg PO TID Macrobid (Nitrofurantoin Monoh/Nitrofur Macro) 100 Mg Cap 100 Mg PO BID 10 Days Reported (Norethindrone-Ethinyl Estradiol-Fe) 1.5-30 Mg-Mcg Tab 1 Tab PO DAILY Metronidazole 500 Mg Tab 500 Mg PO BID Review of Systems Except as stated in HPI: all other systems reviewed are Neg General / Constitutional: No: Fever Physical Exam Narrative GENERAL: Well-nourished, well-developed patient. Well-appearing and nontoxic. SKIN: Focused skin assessment warm/dry. HEAD: Normocephalic. EYES: No scleral icterus. No injection or drainage. NECK: Supple, trachea midline. No JVD or lymphadenopathy. CARDIOVASCULAR: Regular rate and rhythm without murmurs, gallops, or rubs. RESPIRATORY: Breath sounds equal bilaterally. No accessory muscle use. GASTROINTESTINAL: Abdomen soft, mild epigastric tenderness, nondistended. No rebound or guarding MUSCULOSKELETAL: No cyanosis, or edema. BACK: Nontender without obvious deformity. No CVA tenderness. Data Data Last Documented VS Vital Signs Date Time Temp Pulse Resp B/P (MAP) Pulse Ox O2 Delivery O2 Flow Rate FiO2 05/28/17 12:29 98.3 70 15 131/77 (95) 97 Orders Orders Complete Blood Count With Diff (05/28/17 12:55) Comprehensive Metabolic Panel (05/28/17 12:55) Lipase (05/28/17 12:55) Iv Access Insert/Monitor (05/28/17 12:55) Ondansetron Inj (Zofran Inj) (05/28/17 13:00) Sodium Chloride 0.9% Flush (Ns Flush) (05/28/17 13:00) Famotidine Inj (Pepcid Inj) (05/28/17 13:00) Ketorolac Inj (Toradol Inj) (05/28/17 13:00) Ed Urine Pregnancytest Poc (05/28/17 12:55) Ed Discharge Order (05/28/17 14:08) Labs Laboratory Tests Test 05/28/17 13:00 White Blood Count 8.6 TH/MM3 Red Blood Count 4.02 MIL/MM3 Hemoglobin 13.0 GM/DL Hematocrit 37.2 % Mean Corpuscular Volume 92.5 FL Mean Corpuscular Hemoglobin 32.2 PG Mean Corpuscular Hemoglobin Concent 34.9 % Red Cell Distribution Width 13.5 % Platelet Count 251 TH/MM3 Mean Platelet Volume 9.2 FL Neutrophils (%) (Auto) 64.1 % Lymphocytes (%) (Auto) 27.1 % Monocytes (%) (Auto) 5.2 % Eosinophils (%) (Auto) 3.3 % Basophils (%) (Auto) 0.3 % Neutrophils # (Auto) 5.5 TH/MM3 Lymphocytes # (Auto) 2.3 TH/MM3 Monocytes # (Auto) 0.4 TH/MM3 Eosinophils # (Auto) 0.3 TH/MM3 Basophils # (Auto) 0.0 TH/MM3 CBC Comment DIFF FINAL Differential Comment Blood Urea Nitrogen 12 MG/DL Creatinine 0.62 MG/DL Random Glucose 75 MG/DL Total Protein 6.5 GM/DL Albumin 3.7 GM/DL Calcium Level 8.7 MG/DL Alkaline Phosphatase 43 U/L Aspartate Amino Transf (AST/SGOT) 12 U/L Alanine Aminotransferase (ALT/SGPT) 22 U/L Total Bilirubin 0.3 MG/DL Sodium Level 138 MEQ/L Potassium Level 4.1 MEQ/L Chloride Level 107 MEQ/L Carbon Dioxide Level 24.1 MEQ/L Anion Gap 7 MEQ/L Estimat Glomerular Filtration Rate 116 ML/MIN Lipase 101 U/L [facility] Medical Decision Making Medical Screen Exam Complete: Yes Emergency Medical Condition: Yes Differential Diagnosis PUD, GERD, gastritis, pancreatitis, gallbladder disease Narrative Course 27 year old female here with intermittent upper ABD pain x 2 weeks. Patient reports she has been seen multiple times for this with extensive workups which have not found a cause. She reports she was treated for UTI, BV, vaginal yeast, PE/CP RO. The symptoms have persisted. She reports mild improvement with OTC Zantac. She reports she has follow-up with GI this week. She denies fever, chills, chest pain, shortness of breath, dysuria, vaginal discharge. On exam patient is well-appearing. Her abdomen is soft with mild tenderness midepigastric region, no rebound or guarding. IV access established, Toradol administered, Zofran administered, Pepcid administered. Urine : Negative CBC: Unremarkable CMP: Unremarkable Lipase: Unremarkable On reassessment patient reports symptom improvement and is requesting discharge. Her abdomen is soft and nontender. She reports she will follow up with GI this week. Return precautions discussed with patient. Patient verbalizes understanding and agrees to plan Diagnosis Primary Impression: Abdominal pain Qualified Codes: R10.10 - Upper abdominal pain, unspecified Referrals: [employer]er[employer] Supervisor Additional Instructions: Take the medication as described. Avoid taking NSAIDs, aspirin, alcohol, spicy foods. Follow-up with GI. Return to emergency department if he developed new or worsening symptoms. Scripts Famotidine (Pepcid) 40 Mg Tab 40 MG PO HS, #30 TAB 0 Refills Prov: Yari Bower 05/28/17 Disposition: 01 DISCHARGE HOME Condition: Stable Yari Bower May 28, 2017 14:01
[2017-05-28] MEDS ORDERED: FAMO1TAB73 PO (14:06)
== END 2017-05-28 14:24 | disposition home or self-care (01) ==
LOC: NEPD 12:26
DX: R10.10 Upper abdominal pain, unspecified (principal); J45.909 Unspecified asthma, uncomplicated; F41.9 Anxiety disorder, unspecified; Z79.899 Other long term (current) drug therapy
CPT/HCPCS: 80053; 83690; 84703; 85025; 96374; 96375; 99284; J1885; J2405